=== PATIENT | male | born 1980 | race Caucasian/White ===

== ENCOUNTER 2023-12-21 11:08 | Inpatient (IN) | payer OTHER ==
[~2023-12-21] VITALS: Ht 180.3 cm; Wt 97.2 kg
[2023-12-21] VITALS (8 sets, daily range): BP systolic 118–129; BP diastolic 74–79
[2023-12-21 12:08] LABS: Albumin, Blood 1.9 g/dL (3.4-5.0); Albumin/Globulin Ratio 0.4 (0.8-1.8); Bun/Creatinine Ratio 20.4 (12.0-20.0); Calcium, Blood 8.2 mg/dL (8.5-10.1); Creatinine, Blood 0.34 mg/dL (0.60-1.20); Globulin, Blood 5.4 g/dL (2.2-4.0); Potassium, Blood 2.8 mmol/L (3.5-5.5); Total Protein, Blood 7.3 g/dL (6.4-8.2)
[2023-12-21 12:49] LABS: BASOPHILS ABSOLUTE AUTO 0.07 K/mm3 (0.00-0.23); BASOPHILS PERCENT AUTO 0 % (0-2); EOSINOPHILS ABSOLUTE AUTO 0.04 K/mm3 (0.00-0.68); EOSINOPHILS PERCENT AUTO 0 % (0-6); Hematocrit 34.5 % (37.0-53.0); IMMATURE GRAN ABSOLUTE AUTO 0.43 K/mm3 (0.00-0.10); IMMATURE GRAN PERCENT AUTO 2 % (0-1); LYMPHOCYTES ABSOLUTE AUTO 2.07 K/mm3 (0.84-5.20); LYMPHOCYTES PERCENT AUTO 10 % (21-46); MONOCYTES ABSOLUTE AUTO 1.42 K/mm3 (0.16-1.47); MONOCYTES PERCENT AUTO 7 % (4-13); Mean Corpuscular Volume 98 fL (80-100); Mean Platelet Volume 12.2 fL (9.1-12.4); NEUTROPHILS ABSOLUTE AUTO 17.66 K/mm3 (1.96-9.15); NEUTROPHILS PERCENT AUTO 82 % (41-73); NRBC ABSOLUTE 0.05 K/mm3 (0.00-0.02); NRBC Auto 0.2 /100 WBC (0.0-0.2); Platelet Count 148 K/mm3 (150-400); RDW Standard Deviation 62.4 fL (35.1-46.3); Red Blood Cell Count 3.52 M/mm3 (4.30-5.90); White Blood Cell Count 21.69 K/mm3 (4.00-11.30)
[2023-12-21] MEDS ORDERED: Potassium Chloride 40 MEQ IV SCH (12:50)
[2023-12-21] MEDS ORDERED: Potassium Chloride 20 MEQ TabCR PO ONE ×2 (12:50→17:30)
[2023-12-21] MEDS ORDERED: Acetaminophen 325 MG TABLET PO PRN (12:55)
[2023-12-21] MEDS ORDERED: Potassium Chloride 40 MEQ in NS 250 ML IV ONE (13:00)
[2023-12-21 13:01] LABS: International Normalized Ratio 1.26; Prothrombin Time Results 13.3 Sec (9.7-11.5)
[2023-12-21] MEDS ORDERED: LORazepam 2 MG/ML 1ML Injection IV PRN ×4 (13:50→14:55)
[2023-12-21] MEDS ORDERED: Ondansetron HCl 2 MG / ML 2ML Vial IV PRN (13:55)
[2023-12-21] MEDS ORDERED: LORazepam 1 MG Tab PO PRN ×2 (13:55→14:55)
[2023-12-21] MEDS ORDERED: ChlordiazePOXIDE 25 MG Cap PO PRN ×4 (13:55→14:50)
[2023-12-21] MEDS ORDERED: NS 1,000 ML IV SCH (14:05)
[2023-12-21 14:23] LABS: Source, Urine Clean Catch
[2023-12-21 14:26] LABS: Appearance, Urine Hazy (Clear); Blood, Urine 1+ (Neg); Glucose Qualitative, Urine Neg (Neg); Ketones, Urine 3+ (Neg); Leukocyte Esterase, Urine 1+ (Neg); Nitrite, Urine Neg (Neg); Protein, Urine 1+ (Neg); Urobilinogen, Urine 3+ (Normal)
[2023-12-21 14:48] LABS: Bilirubin, Urine 3+ (Neg); Color, Urine Orange (P-Yellow)
[2023-12-21 14:51] LABS: Amorphous Light (0-Heavy); Bacteria Rare /hpf; Red Blood Cells, Urine 0-2 /hpf (0-2); Squamous Epithelial Cells Rare /hpf (Few); White Blood Cells, Urine 0-2 /hpf (0-5)
[2023-12-21 14:53] LABS: Other Crystals Rare /hpf
--- NOTE | 2023-12-21 15:00 | NUR ---
Patient came from ER via [facility]. He was alert and oriented and was able to communicate his needs. He transferred self to PCU 2 bed. Hooked to monitor and continued potassium gtt and Fluids. Called Dr Camp and we stopped fluids until he was able to address labs. He was on RA and sats >90%. He has 20ga IV to RW and is infusing above fluids. family is present in room.
[2023-12-21 15:49] LABS: Base Excess Venous 8.3 mmol/L; Bicarbonate Venous 31.8 mmol/L (24.0-30.0); PCO2 Venous 30.2 mmHg (38-42)
[2023-12-21] MEDS ORDERED: TraMADol HCl 50 MG Tab PO PRN ×2 (15:50→20:15)
[2023-12-21] MEDS ORDERED: CefTRIAXone Sodium 1,000 MG in NS 100 ML IV SCH (16:00)
[2023-12-21] MEDS ORDERED: Thiamine HCl 100 MG in NS 50 ML IV SCH (16:00)
[2023-12-21 16:26] LABS: Albumin, Blood 1.8 g/dL (3.4-5.0); Albumin/Globulin Ratio 0.4 (0.8-1.8); Bun/Creatinine Ratio 18.6 (12.0-20.0); Creatinine, Blood 0.32 mg/dL (0.60-1.20); Globulin, Blood 4.9 g/dL (2.2-4.0); Potassium, Blood 2.9 mmol/L (3.5-5.5); Total Protein, Blood 6.7 g/dL (6.4-8.2)
[2023-12-21] MEDS ORDERED: NS 500 ML IV SCH (17:00)
[2023-12-21] MEDS ORDERED: AcetaZOLAMIDE Sodium 500 MG Vial IV SCH (18:00)
[2023-12-21] MEDS ORDERED: Midodrine 5 MG Tab PO SCH (18:00)
--- NOTE | 2023-12-21 18:00 | NUR ---
Patient is resting in bed with father at bedside. Potassium is done. NS will continue at 150 ml/hr in 18ga IV in RW that is WNL's. He will be getting PO 40 meq potassium as well. He remains on RA and sats >90%. he was up to bathroom with SBA to assure lines and tubes and tolerated well and went back to bed on his own. He stated 1 med BM. He remains alert and orient and is able to comunicate all his needs and pain levels. He currently shows no signs of withdrawls and of 1800.
[2023-12-21] MEDS ORDERED: Nicotine 21 MG PATCH TOP ONE (18:15)
--- NOTE | 2023-12-21 19:00 | NUR ---
ASSUMED CARE OF PT AT 1900 AFTE RREPORT FROM DAY SHIFT RN. UPON ASSESSMENT, PT IS AXO X 4 AND TALKATIVE WHEN THIS RN ENTERED ROOM. PT HAS NO NEURO DEFICITS AND RADAMESENLTY HAS NO WITHDRAWAL SX. HE STATES HE HAS A BASELINE TREMOR IN HIS HANDS THAT DOES NOT SEEM ANY WORSE AT THIS TIME. HE IS SINUS TACH AT 107 ON TELE WITH NO C/P. STRONG PULSES. REPORTS PREVIOUS PALPATATIONS RESOLVED. DENIES SOB, O2 IS 96% RA, PT HAS MILD TEMP OF 99.9 IN WHICH I PLAN TO CONTINUE TO MONITOR. HE DENIES ANY CURRENT N/V/D. EDEMA NOTED 1+ TO BLE. PT REPORTS THIS IS CHRONINC, ALSO REPORTS CHRONIC BACK PAIN IN WHICH HE HAS BEEN MEDICATED WITH TRAMDOL FOR. HE REPORTS NORMALLY DRINKING 5-6 BEERS DAILY, APPEARS SLIGHTLY JAUNDICE AND FLUSHED. REPORTS WEAKNESS WHEN TRANSFERING. POTASSIUM IS 2.9, NA 118. HAS 150ML/HR OF NS AT THIS TIME. IV SITE W/ NO INFILTRATION. PT FATHER AT BEDSIDE WITH CALL LIGHT IN REACH. RADAMESILDAPriyanka DENIES ANY NEEDS.
[2023-12-21 19:23] LABS: Bun/Creatinine Ratio 18.6 (12.0-20.0); Creatinine, Blood 0.38 mg/dL (0.60-1.20); Potassium, Blood 3.2 mmol/L (3.5-5.5)
[2023-12-21] MEDS ORDERED: TraMADol HCl 50 MG Tab PO ONE (20:15)
--- NOTE | 2023-12-21 20:30 | NUR ---
PT REQUESTING PRN TRAMADOL. CURRENT SIG IS PRN Q8P, PT NOT YET DUE FOR NEXT DOSE. CALLED MIGUEL, KARELY AND GOT ONE TIME DOSE ORDERED WITH CHNAGE TO Q6P. ORDERS PLACED AND PT MEDICATED FOR 7/10 BACK PAIN. PT ALSO PROVIDED WITH PILLOWS TO PLACE UNDER HIS LEGS FOR EDEMA.
[2023-12-21] MEDS ORDERED: Docusate Sodium 100 MG Cap PO SCH (21:00)
[2023-12-22] VITALS (8 sets, daily range): BP systolic 102–121; BP diastolic 62–87
[2023-12-22 00:03] LABS: Bun/Creatinine Ratio 16.6 (12.0-20.0); Calcium, Blood 8.3 mg/dL (8.5-10.1); Creatinine, Blood 0.42 mg/dL (0.60-1.20); Potassium, Blood 3.3 mmol/L (3.5-5.5)
[2023-12-22 03:59] LABS: BASOPHILS ABSOLUTE AUTO 0.07 K/mm3 (0.00-0.23); BASOPHILS PERCENT AUTO 0 % (0-2); EOSINOPHILS ABSOLUTE AUTO 0.15 K/mm3 (0.00-0.68); EOSINOPHILS PERCENT AUTO 1 % (0-6); Hematocrit 33.3 % (37.0-53.0); Hemoglobin 12.3 g/dL (13.5-17.5); IMMATURE GRAN ABSOLUTE AUTO 0.24 K/mm3 (0.00-0.10); IMMATURE GRAN PERCENT AUTO 1 % (0-1); LYMPHOCYTES PERCENT AUTO 11 % (21-46); MONOCYTES ABSOLUTE AUTO 1.38 K/mm3 (0.16-1.47); MONOCYTES PERCENT AUTO 7 % (4-13); Mean Corpuscular HGB Conc 36.9 g/dL (31.5-36.5); Mean Corpuscular Volume 100 fL (80-100); Mean Platelet Volume 11.9 fL (9.1-12.4); NEUTROPHILS ABSOLUTE AUTO 15.22 K/mm3 (1.96-9.15); NEUTROPHILS PERCENT AUTO 79 % (41-73); NRBC ABSOLUTE 0.05 K/mm3 (0.00-0.02); NRBC Auto 0.3 /100 WBC (0.0-0.2); Platelet Count 177 K/mm3 (150-400); RDW Coefficient Variation 18.8 % (11.7-14.2); RDW Standard Deviation 66.6 fL (35.1-46.3); Red Blood Cell Count 3.32 M/mm3 (4.30-5.90); White Blood Cell Count 19.26 K/mm3 (4.00-11.30)
[2023-12-22 04:10] LABS: International Normalized Ratio 1.29; Prothrombin Time Results 13.5 Sec (9.7-11.5)
[2023-12-22 04:27] LABS: Albumin, Blood 1.8 g/dL (3.4-5.0); Albumin/Globulin Ratio 0.4 (0.8-1.8); Bilirubin, Total 13.4 mg/dL (0.1-1.0); Bun/Creatinine Ratio 19.1 (12.0-20.0); Calcium, Blood 8.4 mg/dL (8.5-10.1); Creatinine, Blood 0.42 mg/dL (0.60-1.20); Globulin, Blood 5.1 g/dL (2.2-4.0); Magnesium, Blood 2.4 mg/dL (1.6-2.4); Potassium, Blood 3.3 mmol/L (3.5-5.5); Total Protein, Blood 6.9 g/dL (6.4-8.2)
[2023-12-22] MEDS ORDERED: Simethicone 80 MG Chew PO PRN (05:05)
--- NOTE | 2023-12-22 05:39 | NUR ---
LEATHER SCRUBBER SUMMARY: PT REMAINED STABLE THROUGHOUT THE NIGHT WITH NO ACUTE CHANGES SINCE ASSUMPTION OF CARE. HE DID REQUEST PAIN MEDICATION AT 1999 AND NEXT DOSE WAS NOT DUE UNTIL 0000. MD WAS CALLED AND AUTHORIZED A ONE TIME DOSE AND CHANGED PRN ORDER TO Q6. PT ALSO REPORTS SOME GAS PAIN IN WHICH SIMETHICOTE WAS ORDERED AND GIVEN. VSS THROUGHOUT THE NIGHT WITH SLIGHTLY ELEVATED TEMP OF 99.9 TRENDING DOWN TO MOST RECENT READING OF 98.5. DENIED ANY WITHDRAWAL SX AND CIWA NEGATIVE AT THIS TIME. MILD BACK AND ABDOMINAL PAIN AT THIS TIME. WILL CONTINUE TO COMPLETE ORDERS AND PLACED AND REQUESTED UNTIL REPORT TO DAY SHIFT RN.
[2023-12-22] MEDS ORDERED: Nicotine 21 MG PATCH TOP SCH (09:00)
[2023-12-22] MEDS ORDERED: Folic Acid 1 MG in NS 50 ML IV SCH (09:00)
[2023-12-22] MEDS ORDERED: Enoxaparin 40 MG/0.4 ML SYR SC SCH (09:00)
[2023-12-22] MEDS ORDERED: Dextrose 5% 1,000 ML IV SCH ×2 (09:00→22:45)
[2023-12-22 13:24] LABS: Bun/Creatinine Ratio 20.1 (12.0-20.0); Calcium, Blood 8.1 mg/dL (8.5-10.1); Creatinine, Blood 0.45 mg/dL (0.60-1.20); Potassium, Blood 2.9 mmol/L (3.5-5.5)
[2023-12-22] MEDS ORDERED: Potassium Chloride 20 MEQ TabCR PO ONE ×2 (13:40→18:00)
[2023-12-22] MEDS ORDERED: Calcium Carbonate 500 MG Tab Chew PO ONE (15:00)
[2023-12-22] MEDS ORDERED: Calcium Carbonate 500 MG Tab Chew PO PRN (15:00)
[2023-12-22 16:06] LABS: HEPATITIS A ANTIBODY, IGM Negative (Negative); HEPATITIS B CORE ANTIBODY, IGM Negative (Negative); HEPATITIS B SURFACE ANTIGEN Negative (Negative); HEPATITIS C AB CIA INTERP Negative (Negative); HEPATITIS C ANTIBODY CIA INDEX 0.26 IV
[2023-12-22 17:03] LABS: Bun/Creatinine Ratio 19.4 (12.0-20.0); Calcium, Blood 8.2 mg/dL (8.5-10.1); Creatinine, Blood 0.46 mg/dL (0.60-1.20); Potassium, Blood 3.1 mmol/L (3.5-5.5)
[2023-12-22] MEDS ORDERED: Multivitamins-Minerals Liquid 15 ML Oral Syringe PO SCH (18:00)
--- NOTE | 2023-12-22 18:48 | NUR ---
END OF SHIFT PT A&O X4. MONITOR SHOWING SR-ST, HR 90s-110s. SPO2 > 92% ON RA. VSS. PT W/ MILD BILAT HAND TREMOR THAT PT REPORTS BEING BASELINE FOR HIM. PT REPORTING ONSET OF MILD HEADACHE TODAY IN ADDITION TO CHRONIC BACK PAIN. PT MEDICATED PER EMAR/PT REQUEST W/ SOME IMPROVEMENT. MD FERRARA NOTIFIED OF PT NA & K LEVELS THIS SHIFT. W/ ORDER FOR PO POTASSIUM GIVEN X2 THIS SHIFT & IVF GIVEN & DCd PER MD ORDERS WELL. PT REPORTING DESIRE TO REMAIN IN HOSPITAL & DISCONTINUE DRINKING ALCOHOL.
--- NOTE | 2023-12-22 19:30 | NUR ---
ASSUMPTION OF CARE: ASSUMED CARE OF PT AFTER REPORT FROM SINDY NORRIS RN AT 1900. PT HAD NO ACUTE CHNAGES IN CONDITON T/O THE DAY PER DAY SHIFT RN. SOME SHIFTS IN SODIUM LEVELS BEING MANAGED BY DESMOPRESSIN. PLAN TO CONTINUE TO MONITOR LEVELS T/O THE NIGHT. UPON ASSESSMENT, PT IS AXO X 4 CALM AND COOPERATIVE. HE DENIES ANY C/P AND SINUS AT 95BPM. RESPIRATORY WNL WITH O2 AT 94% RA. PRODUCTIVE COUGH CHRONIC. DENIES N/V/D. BACK PAIN 03/08. PLAN TO MEDICATE AT 2100 WITH PRN TORADOL. HE CURRENLTY DENIES ANY NEEDS AND IS ADVISED TO CALL IF HE HAS ANY REQUESTS. CALL LIGHT IN REACH AND VSS AT THIS TIME.
[2023-12-22 22:34] LABS: Calcium, Blood 8.2 mg/dL (8.5-10.1); Creatinine, Blood 0.5 mg/dL (0.60-1.20); Potassium, Blood 3.5 mmol/L (3.5-5.5)
--- NOTE | 2023-12-22 23:00 | NUR ---
MD NOTIFICATION CALL PLACED TO PROVIDER MIGUEL REGARDING MONITORING SODIUM LEVELS AND DESMOPRESSIN ADMINISTRATION. PROVIDER WITH ORDER TO CHECK SODIUM NOW (2100) AND NOTIFY HIM WITH RESULT FOR FURTHER INSTRUCTION. LAB DRAWN WITH RESULTS CALLED TO PROVIDER. PROVIDER MIGUEL WITH ORDER FOR D5W AT 150MLS/HR WITH CONTINUED PLAN TO ADMINISTER DESMOPRESSIN WTIH 0030 LAB DRAW. ORDERS PLACED PER PROVIDER. SPOKE TO PROVIDER REGARDING MD MCCLELLAN PROGRESS NOTE WITH PLAN FOR HYPONATREMIA. NO FURTHER INSTRUCTION AT THIS TIME. OTHERWISE NO ACUTE CHANGES WITH PATIENT.
[2023-12-23] VITALS (7 sets, daily range): BP systolic 95–107; BP diastolic 63–76
[2023-12-23 01:35] LABS: Bun/Creatinine Ratio 24.3 (12.0-20.0); Calcium, Blood 8.2 mg/dL (8.5-10.1); Creatinine, Blood 0.45 mg/dL (0.60-1.20); Potassium, Blood 3.2 mmol/L (3.5-5.5)
[2023-12-23 04:50] LABS: Albumin, Blood 1.8 g/dL (3.4-5.0); Albumin/Globulin Ratio 0.4 (0.8-1.8); Bilirubin, Total 12.6 mg/dL (0.1-1.0); Calcium, Blood 8.3 mg/dL (8.5-10.1); Creatinine, Blood 0.52 mg/dL (0.60-1.20); Globulin, Blood 4.7 g/dL (2.2-4.0); Magnesium, Blood 2.2 mg/dL (1.6-2.4); Phosphorus, Blood 1.5 mg/dL (2.5-4.9); Potassium, Blood 3.2 mmol/L (3.5-5.5); Total Protein, Blood 6.5 g/dL (6.4-8.2)
--- NOTE | 2023-12-23 05:29 | NUR ---
PCU LEGAL PARAPROFESSIONAL SUMMARY: THROUGHOUT THE NIGHT, PT HAD NO ACUTE CHANGES IN STATUS SINCE ASSUMPTION OF CARE. D5 AND DESMOPRESSIN GIVEN TO HELP WITH THE OVERCORRECTION OF NA LEVELS AND MD WAS NOTIFIED AT MIDNIGHT OF SODIUM LEVEL OF 127 AND PLAN WAS TO CONTINUE TO TREAT WITH D5. AT 0500 LABS CAME BACK WITH NA AT 125 AND MD CALLED AND NOTIFIED, D5 DCD AFTER 800MLS INFUSED. PT HAS HAD SCANT URINE OUTPUT. HE REPORTS NO NEW PAIN AND HAS BEEN MEDICATED WITH TORADOL AND TYLENOL T/O THE NIGHT FOR CHRONIC BACK PAIN. HAS BEEN COOPERATIVE WITH CARE T/O THE NIGHT. CURRENTLY DENIES NEEDS, CALL LIGHT IN REACH AND ALL VSS. WILL CONTINUE TO COMPLETE ORDERS PLACED AND REQUESTED UNTIL REPORT TO DAY SHIFT RN.
[2023-12-23] MEDS ORDERED: NS 1,000 ML IV SCH (09:15)
[2023-12-23] MEDS ORDERED: Potassium Phosphate Dibasic 30 MM in Dextrose 5% 500 ML IV STA (09:21)
[2023-12-23 09:32] LABS: Bun/Creatinine Ratio 25.2 (12.0-20.0); Calcium, Blood 7.8 mg/dL (8.5-10.1); Creatinine, Blood 0.44 mg/dL (0.60-1.20); Potassium, Blood 3.2 mmol/L (3.5-5.5)
[2023-12-23 17:21] LABS: Bun/Creatinine Ratio 27.5 (12.0-20.0); Calcium, Blood 8.2 mg/dL (8.5-10.1); Creatinine, Blood 0.4 mg/dL (0.60-1.20); Potassium, Blood 3.7 mmol/L (3.5-5.5)
--- NOTE | 2023-12-23 18:10 | NUR ---
END OF SHIFT SUMMARY: IS A&OX4 AND ACTIVE IN HIS CARE. IS SATTING >90% ON ROOM AIR. IS ON TELE SHOWING NSR WITH A RATE OF 70-80'S. INDEPENDENT AND IS USING THE URINAL.GOT A POWER GLIDE PLACED TODAY. SEE CIWA FOR ALCOHOL WITHDRAW. REPORTS A TREMOR AT BASELINE. WAS MEDICATED FOR A 6/10 BACK PAIN MULTIPLE TIMES THROUGHOUT THE SHIFT PER EMAR. ALSO REPORTED SOME NAUSEA AND WAS MEDICATED WITH TUMS PER EMAR. WAS ABLE TO REST TODAY.
[2023-12-24 03:17] VITALS: BP 100/71
[2023-12-24 04:18] LABS: Magnesium, Blood 1.9 mg/dL (1.6-2.4)
[2023-12-24 04:19] LABS: Bun/Creatinine Ratio 23.3 (12.0-20.0); Calcium, Blood 7.7 mg/dL (8.5-10.1); Creatinine, Blood 0.43 mg/dL (0.60-1.20); Phosphorus, Blood 2.8 mg/dL (2.5-4.9); Potassium, Blood 3.6 mmol/L (3.5-5.5)
--- NOTE | 2023-12-24 04:46 | NUR ---
SHIFT SUMMARY THIS RN ASSUMED CARE OF PATIENT AT 1900. PT A&O X4. ABLE TO MAKE NEEDS KNOWN. CIWA NEGATIVE DURING THIS SHIFT, PT REPORTS BASELINE TREMOR. SR WITH HR 80'S. SBP 90-100'S, MAP >65. AFEBRILE. ON RA WITH SPO2 >92%. USING URINAL INDEPENDENTLY. NS INFUSING PER EMAR. NO EDEMA NOTED. BED IN LOWEST POSITION AND CALL LIGHT WITHIN REACH. THIS RN WILL REPORT TO ONCOMING DAYSHIFT RN.
[2023-12-24 08:38] VITALS: BP 101/78
[2023-12-24] MEDS ORDERED: Protein Supplement 30 ML UD PO SCH (09:00)
[2023-12-24] MEDS ORDERED: Sodium Chloride 1 GM TAB PO SCH (09:00)
[2023-12-24] MEDS ORDERED: Albumin (Human) 25gm/100ml 100 ML IV SCH (09:20)
[2023-12-24] MEDS ORDERED: Spironolactone 50 MG Tab PO SCH ×2 (12:00→18:00)
[2023-12-24] MEDS ORDERED: Thiamine HCl 100 MG Tab PO SCH (14:00)
[2023-12-24] MEDS ORDERED: Folic Acid 1 MG TAB PO SCH (16:00)
[2023-12-24 19:05] VITALS: BP 112/77
--- NOTE | 2023-12-24 19:11 | NUR ---
SHIFT SUMMARY PATIENT TRANSFERRED TO UNIT AROUND 1500. HE IS AOX4 UP INDEPENDENT IN THE ROOM, MEDICATED FOR PAIN PER EMAR DUE TO BACK PAIN. BED IN LOW POSITION, CALL LIGHT IN REACH. HEIS ABLE TO MAKE NEEDS KNOWN. NO CIWAA SYMPTOMS AT THIS TIME. PATIENT REPORTS BASELINE TREMOR.
[2023-12-25 04:14] VITALS: BP 110/76
--- NOTE | 2023-12-25 05:24 | NUR ---
SHIFT SUMMARY PT IS A&O X 4. PT IS INDEPENDANT IN THE ROOM. POWERGLIDE FLUSHES AND DRAWS BACK BLOOD WELL. PATIENT'S URINE IS TEA COLORED. PT COMPLAINS OF CHRONIC BACK PAIN. PAIN IS CONTROLLED WITH REPOSITIONING AND TYLENOL PER EMAR. PT CALLS APPROPRIATELY. PT SLEPT THROUGHOUT THE NIGHT. HIS LUNG SOUNDS ARE COARSE. CHEST RISE AND FALL ARE SYMMETRICAL. PT REFUSED TELE.
[2023-12-25 05:36] LABS: Albumin, Blood 2.2 g/dL (3.4-5.0); Albumin/Globulin Ratio 0.5 (0.8-1.8); Bilirubin, Total 11.7 mg/dL (0.1-1.0); Bun/Creatinine Ratio 15.3 (12.0-20.0); Calcium, Blood 8.7 mg/dL (8.5-10.1); Creatinine, Blood 0.46 mg/dL (0.60-1.20); Globulin, Blood 4.1 g/dL (2.2-4.0); Phosphorus, Blood 3.4 mg/dL (2.5-4.9); Potassium, Blood 3.6 mmol/L (3.5-5.5); Total Protein, Blood 6.3 g/dL (6.4-8.2)
[2023-12-25 07:11] VITALS: BP 106/76
[2023-12-25] MEDS ORDERED: Sodium Chloride 1 GM TAB PO SCH (09:00)
--- NOTE | 2023-12-25 09:24 | NUR ---
pt sitting up in bed watching tv, asking about next dose of pain, meds, states the middle of his back hurts, agreeable for heating pad, a/ox4, pleasant and cooperative with care, follows commands well, lungs are clear in upper kate, course in bases, resp even and unlabored, no cough noted or reported, hrr, no edema noted, ppp+2, cap refill <3 sec, vs stable, afebrile, power glide to romel site is clear and patent, btx4, abd round firm, he states it's gone down, and is softer, reports reg bm and voids without diff, skin c/w/d, maew, anjelica, call light in reach.
[2023-12-25] MEDS ORDERED: ACET325 PO (11:32)
[2023-12-25] MEDS ORDERED: Calcium Carbon500 MG PO (11:34)
[2023-12-25] MEDS ORDERED: MIDO5 PO (11:35)
[2023-12-25] MEDS ORDERED: MULVITA PO (11:36)
[2023-12-25] MEDS ORDERED: SPIR50 PO (11:36)
[2023-12-25] MEDS ORDERED: TRAM50 PO (11:37)
[2023-12-25] MEDS ORDERED: SENN187 PO (11:38)
--- NOTE | 2023-12-25 12:30 | NUR ---
pt has been discharged to home, is anxious to go, states family is waiting for him, didn't want lunch, will eat at home, power glide removed intact, dressed with padmaja and coban, went over discharge instructions with him, he verbalized understanding, has hard copy script for tramadol in his discharge folder, left via wheelchair with all belongings, new medications faxed to [facility].
== END 2023-12-25 12:31 | disposition home or self-care (01) | DRG 433 ==
LOC: ER 11:08 → PCU 13:50 → MEDS 12-24 15:02
PROVIDERS: Internal Medicine; Nurse Practitioner Acute Care; Student in an Organized Health Care Education/Training Program; ADMIT Student in an Organized Health Care Education/Training Program
DX: K70.11 Alcoholic hepatitis with ascites (principal); E87.1 Hypo-osmolality and hyponatremia; E87.3 Alkalosis; N39.0 Urinary tract infection, site not specified; F10.20 Alcohol dependence, uncomplicated; E80.6 Other disorders of bilirubin metabolism; E87.6 Hypokalemia; E88.09 Other disorders of plasma-protein metabolism, not elsewhere classified; D69.6 Thrombocytopenia, unspecified
CPT/HCPCS: 36415; 71045; 74177; 76705; 80048; 80053; 80074; 81001; 82248; 82436; 82803; 83605; 83690; 83735; 83930; 83935; 84100; 84295; 84300; 84443; 85025; 85610; 85730; 87086; 99285-25; A9270; J0696; J2597; J3411; J3480; J7030; J7040; J7050; J7060; J7070; P9047; Q9967

== ENCOUNTER 2024-05-23 14:06 | Day surgery (SDC) | payer OTHER ==
[~2024-05-23] VITALS: Ht 177.8 cm; Wt 79.7 kg
[~2024-05-23 14:06] MED LIST: ACET325 PO; Calcium Carbon500 MG PO; Lactated Ringer's 1,000 ML IV ONE; Lidocaine 2% 5 ML SDV ONE; MIDO5 PO; MULVITA PO; Methylene Blue 1% 100 MG/10 ML VIAL ONE; SENN187 PO; SPIR50 PO; TRAM50 PO; propofoL 50 ML IV ONE
[2024-05-23] MEDS ORDERED: Cyclobenzaprine5 MG (14:25)
[2024-05-23] MEDS ORDERED: Lactated Ringer's 1,000 ML IV ONE (14:54)
[2024-05-23] MEDS ORDERED: propofoL 50 ML IV ONE (14:58)
== END 2024-05-23 16:04 | disposition home or self-care (01) ==
LOC: ORSCSDS 14:06
PROVIDERS: Internal Medicine Gastroenterology
PROC: 0DJ08ZZ Inspection of Upper Intestinal Tract, Via Natural or Artificial Opening Endoscopic (ICD-10-PCS; principal; 2024-05-23 15:15)
PROC: 0DBL8ZX Excision of Transverse Colon, Via Natural or Artificial Opening Endoscopic, Diagnostic (ICD-10-PCS; principal; 2024-05-23 15:15)
DX: R10.9 Unspecified abdominal pain (principal); R93.3 Abnormal findings on diagnostic imaging of other parts of digestive tract; D12.3 Benign neoplasm of transverse colon; R10.13 Epigastric pain; K22.10 Ulcer of esophagus without bleeding; K70.30 Alcoholic cirrhosis of liver without ascites; I85.10 Secondary esophageal varices without bleeding; K76.6 Portal hypertension; K31.89 Other diseases of stomach and duodenum; F17.210 Nicotine dependence, cigarettes, uncomplicated; Z79.899 Other long term (current) drug therapy
CPT/HCPCS: 88305; J2704; J7120; Q9968